=== PATIENT | male | born 1935 | race African-American/Black ===

== ENCOUNTER 2016-12-29 20:03 | Emergency (ER) | payer OTHER ==
[~2016-12-29] VITALS: Ht 177.8 cm; Wt 59.0 kg
[2016-12-30 02:00] VITALS: BP 154/80
== END 2016-12-30 02:00 | disposition home or self-care (01) ==
LOC: EDBD 20:11 → ER 20:11
DX: B35.3 Tinea pedis (principal); I10 Essential (primary) hypertension; Z85.46 Personal history of malignant neoplasm of prostate; Z98.890 Other specified postprocedural states
CPT/HCPCS: 99283; A4315